=== PATIENT | female | born 1965 | race Caucasian/White ===

== ENCOUNTER → 2016-11-23 | Outpatient (CLI) | payer OTHER ==
--- NOTE | 2016-11-23 12:25 | MR ---
EXAMINATION TYPE: MR cervical spine wo con DATE OF EXAM: 11/23/2016 12:05 PM COMPARISON: NONE HISTORY: Cervicalgia, Lenard arm pain and weakness, Headaches TECHNIQUE: Multiplanar, multisequence images of the cervical spine were acquired. C2-C3: No evidence for degenerative disc disease. No disc bulge/herniation or protrusion. No Canal stenosis. Foramina are patent bilaterally. C3-C4: Mild disc desiccation noted. Small right paracentral disc protrusion with mild effacement of t he ventral thecal sac. Mild right foraminal encroachment identified. Left neural foramen is patent. C4-C5: No evidence for degenerative disc disease. No disc bulge/herniation or protrusion. No Canal stenosis. Foramina are patent bilaterally. C5-C6: No evidence for degenerative disc disease. No disc bulge/herniation or protrusion. No Canal stenosis. Foramina are patent bilaterally. C6-C7: No evidence for degenerative disc disease. No disc bulge/herniation or protrusion. No Canal stenosis. Foramina are patent bilaterally. C7-T1: No evidence for degenerative disc disease. No disc bulge/herniation or protrusion. No Canal stenosis. Foramina are patent bilaterally. Cervical segments are intact. There is normal alignment. Cervical spinal cord is of normal signal. Craniovertebral junction relationships are within normal limits. IMPRESSION: 1. At C3-4 there is Mild disc desiccation noted. Small right paracentral disc protrusion with mild ef facement of the ventral thecal sac. Mild right foraminal encroachment identified.
--- NOTE | 2016-11-24 10:37 | MR ---
EXAMINATION TYPE: MR lumbar spine wo/w con DATE OF EXAM: 11/23/2016 12:06 PM COMPARISON: NONE HISTORY: lumbago, vinnie leg numbness/pain, sciatica TECHNIQUE: T1 and T2 axial and sagittal images of the lumbar spine are submitted. FINDINGS: There is no abnormal signal seen within the visualized spinal cord or paraspinal soft tissu es. Vertebral body hemangioma T12 and L3. At L1-2 there is no disc herniation or canal stenosis. No foraminal encroachment. At L2-3 there is no disc herniation or canal stenosis. No foraminal encroachment. Mild facet arthropa thy. At L3-4 there is mild facet arthropathy. No disc herniation or canal stenosis. No foraminal encroachm ent. At L4-5 there is postsurgical changes with productive facet arthropathy. There is no Canal stenosis. Hypertrophic changes are seen posteriorly. Circumferential disc bulging seen with no canal stenosis. Mild bilateral foraminal encroachment. At L5-S1 there is central disc bulging slightly greater paracentrally the right. There is mild mass e ffect upon the thecal sac. Moderate degenerative disc disease. Mild facet arthropathy. Neural foramin a are patent. IMPRESSION: 1. Postsurgical changes L4-L5 with no evidence of canal stenosis. Mild bilateral foraminal encroachme nt due to hypertrophic changes. 2. There is a central disc bulge or small protrusion L5-S1 mildly indenting the thecal sac. No forami nal encroachment.
== END ==
LOC: RADMRIMAIN 10:13
PROVIDERS: ATTEND Nurse Practitioner Acute Care
DX: M50.21 Other cervical disc displacement, high cervical region (principal); M48.06 Spinal stenosis, lumbar region; Z91.041 Radiographic dye allergy status; Z88.0 Allergy status to penicillin; Z88.2 Allergy status to sulfonamides; Z88.8 Allergy status to other drugs, medicaments and biological substances; Z91.09 Other allergy status, other than to drugs and biological substances
CPT/HCPCS: 72141; 72158; A9577

== ENCOUNTER → 2019-06-06 | Outpatient (CLI) | payer OTHER ==
--- NOTE | 2019-06-07 12:11 | MM ---
Reason for exam: screening (asymptomatic). Last mammogram was performed 2 years and 5 months ago. History: Patient is postmenopausal. Family history of breast cancer in maternal cousin. Physical Findings: A clinical breast exam by your physician is recommended on an annual basis and results should be correlated with mammographic findings. MG Screening Mammo w CAD Bilateral CC and MLO view(s) were taken. Prior study comparison: January 05, 2017, mammogram. The breast tissue is heterogeneously dense. This may lower the sensitivity of mammography. No significant changes when compared with prior studies. ASSESSMENT: Benign, BI-RAD 2 RECOMMENDATION: Routine screening mammogram of both breasts in 1 year.
--- NOTE | 2019-06-07 16:17 | BD ---
EXAMINATION TYPE: Axial Bone Density DATE OF EXAM: 06/06/2019 COMPARISON: NONE CLINICAL HISTORY: 53 YR OLD FEMALE....ICD-10 CODE: N95.1 POST MENOPAUSAL SYMPTOMS Height: 63.5 Weight: 151 FRAX RISK QUESTIONS: Family History (Parent hip fracture): YES Current Tobacco Use: YES RISK FACTORS HISTORY OF: HX OF C3, C4 FRACTURE, COLLAR BONE AND NOSE, <50 YRS OLD Surgery to Spine LOWER SPINE, FUSION, WITH SCREWS LUMBAR SPINE< 50 YRS OLD Family History of Osteoporosis: YES, HER MOTHER WITH HIP REPAIRS Diet low in dairy products/other sources of calcium: YES, CANNOT TOLERATE Postmenopausal woman: YES, AT AGE 47 YRS OLD Lost more than 2 inches in height since high school: YES MEDICATIONS: Additional Medications: ANTI SEZIURE MEDS, EXCEDRIN, XANAX Additional History: BACK PAIN, EXAM MEASUREMENTS: Bone mineral densitometry was performed using the [employer] System. FUSION OF LUMBAR, SPINE NOT SCANNED Bone mineral density about the R hip (g/cm2): 0.776 Bone mineral density about the L hip (g/cm2): 0.827 T Score values are as follows: -----R Neck: -2.1 -----L Neck: -1.8 -----R Total: -1.8 -----L Total: -1.4 Bone mineral density FIRST DEXA, BASELINE STUDY FRAX%s: THERE IS A 14.6% CHANCE FOR A MAJOR OSTEOPOROTIC FX AND A 3.7% FOR HIP....PROBABILITY FOR F X IN 10 YRS TIME Bone mineral density about the L Wrist (g/cm2): 0.516 T Score values are as follows: -----Dist. R+U: -3.1 -----Prox. R+U: -1.5 -----Radius total: -2.2 Bone mineral density BASELINE STUDY IMPRESSION: Osteoporosis (T Score less than -2.5). There is increased fracture risk and therapy is usually indicated based on age. Re-Screen 1-2 years. NOTE: T-SCORE=SD OF THE YOUNG ADULT MEAN.
== END | disposition home or self-care (01) ==
LOC: RADMAMWWP 14:49
PROVIDERS: ATTEND Obstetrics & Gynecology
DX: Z12.31 Encounter for screening mammogram for malignant neoplasm of breast (principal); M81.0 Age-related osteoporosis without current pathological fracture; N95.1 Menopausal and female climacteric states
CPT/HCPCS: 77067; 77080

== ENCOUNTER → 2020-11-29 | Outpatient (CLI) | payer OTHER ==
[2020-11-29 19:27] LABS: HCT 45.8 % (37.2-46.3); HGB 15.3 g/dL (12.0-15.0); MCHC 33.4 g/dL (32.0-37.0); MCV 92.7 fL (80.0-97.0); Mean Platelet Volume 12.1 fL (9.5-12.2); Platelet Count 208 X 10*3/uL (140-440); RBC 4.94 X 10*6/uL (4.10-5.20); RDW 12.5 % (11.5-14.5); WBC 7.46 X 10*3/uL (4.50-10.00)
[2020-11-30 01:41] LABS: African American GFR (CKD) 83.4 (60.0-200.0); Anion Gap 10.4 mmol/L (4.00-12.00); Carbon Dioxide 25.6 mmol/L (21.6-31.8)
== END ==
LOC: LABWHC1 12:00
PROVIDERS: ATTEND Internal Medicine Interventional Cardiology
DX: Z01.812 Encounter for preprocedural laboratory examination (principal)
CPT/HCPCS: 36415; 80051; 82565; 84520; 85027

== ENCOUNTER 2020-12-10 10:23 | Day surgery (SDC) | payer OTHER ==
[~2020-12-10 10:23] MED LIST: ALPRAZolam 0.25 MG TAB PO PRN; ASPIRIN 325 MG TAB PO STA; HEPARIN SODIUM,PORCINE 10,000 UNIT in SODIUM CHLORIDE 0.9% 1,000 ML IRRIGATION PRN; HEPARIN SODIUM,PORCINE 2,500 UNIT in SODIUM CHLORIDE 0.9% 250 ML IRRIGATION PRN; NITROGLYCERIN SL TABS 0.4 MG TAB SUBLINGUAL PRN; SODIUM CHLORIDE 0.9% 1,000 ML in EMPTY BAG 1 BAG IV ONE
[2020-12-10] MEDS ORDERED: ALPRAZolam 0.5 MG TAB ONE (10:36)
[2020-12-10] MEDS ORDERED: ASPIRIN 81 MG ONE (10:36)
[2020-12-10] MEDS ORDERED: MIDAZOLAM 2 MG/2 ML VIAL IV ONE (12:10)
[2020-12-10] MEDS ORDERED: LIDOCAINE 1% INJ 10MG/ML (20 ML MDV) SQ ONE (12:12)
[2020-12-10] MEDS ORDERED: VERAPAMIL SYRINGE (5 MG/10 ML) INTRAARTER ONE (12:14)
[2020-12-10] MEDS ORDERED: HEPARIN SODIUM 1,000 UN/ML (10ML VL) IV ONE (12:18)
[2020-12-10] MEDS ORDERED: HYDROmorphone 0.5 MG/0.5 ML SYRINGE IVP ONE (12:19)
[2020-12-10] MEDS: NITROGLYCERIN 1000MCG/10ML SYRINGE INTRACORON ONE ×2 (12:28→12:34)
[2020-12-10] MEDS ORDERED: IOPAMIDOL-370 125ML BTL INJ ONE (12:37)
[2020-12-10] MEDS ORDERED: PRASUGREL 10 MG TAB ONE (12:37)
[2020-12-10] MEDS ORDERED: PRASUGREL 10 MG TAB PO ONE (12:37)
[2020-12-10] MEDS ORDERED: ATROPINE SULFATE 0.1 MG/ML 10ML SYRINGE IV PRN (12:47)
[2020-12-10] MEDS ORDERED: RX INFO: IV CONTRAST WAS GIVEN 1 EACH MISC MISCELLANE PRN (12:47)
[2020-12-10] MEDS ORDERED: NITROGLYCERIN SL TABS 0.4 MG TAB SUBLINGUAL PRN (12:47)
[2020-12-10] MEDS ORDERED: ZOLPIDEM 5 MG TAB PO PRN (12:47)
[2020-12-10] MEDS ORDERED: MAG HYDROX/AL HYDROX/SIMETH 30 ML CUP PO PRN (12:47)
[2020-12-10] MEDS ORDERED: ASPIRIN-ACET-CAFF 250-250-65MG 1 EACH TAB PO PRN (12:48)
[2020-12-10] MEDS ORDERED: SODIUM CHLORIDE 0.9% 1,000 ML IV SCH (13:00)
--- NOTE | 2020-12-10 13:44 | PTCA ---
PERCUTANEOUSTRANS CORORONARY ANGIOGRAPHY DATE OF SERVICE: December 10, 2020 PERFORMING PHYSICIAN: Cristopher Feng MD. PROCEDURE PERFORMED: 1. Successful stenting of the proximal left anterior descending artery using 3.0 x 15 mm Xience drug-eluting stent with an excellent angiographic results and reduction of stenosis from 70% to 0%. 2. Fractional flow reserve, FFR, of the left anterior descending artery. INDICATION: This is a 55-year-old female patient with hypertension and dyslipidemia and smoking who presented recently to [facility] with chest discomfort. She underwent a heart catheterization at that point and she was found to have intermediate to severe disease involving the LAD. Medical treatment was advised, but because the patient continues to have chest discomfort concerning for angina, a heart catheterization with FFR of the LAD was advised. APPROACH: Right radial artery. COMPLICATION: None. LEVEL OF SEDATION: Moderate with sedation length of 28 minutes. PROCEDURE DESCRIPTION: After obtaining an informed consent, the patient was brought to the cardiac freezer laboratory technician. The right radial artery was cannulated using micropuncture technique, the micropuncture wire passed easily then I placed a 6-Nepali sheath in the right radial artery. At that point, the patient was given 2 mg of verapamil IA and 6000 units of heparin IV. After that I did an FFR of the left anterior descending artery and subsequently stenting of the LAD. FFR AND STENTING OF THE LAD: After zeroing the Doppler wire and equalizing between the Doppler wire and the guiding catheter, we did an iFR of the LAD and that came in to be at 0.88. We did not pursue adenosine infusion because iFR was abnormal to start with. At that point, I did direct stenting of the lesion using 3.0 x 15 mm Xience drug- eluting stent where the stent was positioned under fluoroscopy guidance and deployed under its nominal pressure. The following angiogram showed excellent angiographic results and the procedure was completed without any complication. Please note that ACT monitoring was performed throughout the procedure. POSTPROCEDURE MANAGEMENT: Medical treatment and follow up with the patient. MMODL / IJN: [id number] /
[2020-12-10 14:08] VITALS: BMI 24.8
[2020-12-10] MEDS: ACETAMINOPHEN TAB 500 MG TAB PO PRN ×2 (14:38→20:31)
[2020-12-10] MEDS ORDERED: ATORVASTATIN 80 MG TAB PO SCH (21:00)
[2020-12-11 05:51] LABS: Basophils # (A) 0.1 k/uL (0-0.2); Basophils % (A) 1 %; Eosinophils # (A) 0.1 k/uL (0-0.7); Eosinophils % (A) 1 %; HCT 42.4 % (34.0-46.0); Lymphocytes # (A) 4.2 k/uL (1.0-4.8); Lymphocytes % (A) 33 %; MCH 30.3 pg (25.0-35.0); MCV 91.8 fL (80.0-100.0); Monocytes # (A) 0.6 k/uL (0-1.0); Monocytes % (A) 5 %; Neutrophils # (A) 7.7 k/uL (1.3-7.7); Neutrophils % (A) 60 %; Platelet Count 210 k/uL (150-450); RBC 4.62 m/uL (3.80-5.40); RDW 12.8 % (11.5-15.5); WBC 12.7 k/uL (3.8-10.6)
[2020-12-11 06:02] LABS: African American GFR (CKD) >90 (>60 ml/min/1.73 sqM); Anion Gap 5 mmol/L; Blood Urea Nitrogen 15 mg/dL (7-17); Calcium 8.7 mg/dL (8.4-10.2); Carbon Dioxide 28 mmol/L (22-30); Chloride 105 mmol/L (98-107); Glucose 93 mg/dL (74-99); Non-African American GFR(CKD) 89 (>60 ml/min/1.73 sqM); Sodium 138 mmol/L (137-145)
[2020-12-11 07:48] VITALS: BP 107/71; PULSE 64; RESP 16; TEMP 97.8
[2020-12-11] MEDS ORDERED: METOPROLOL SUCCINATE (ER) 25 MG TAB.ER.24H PO SCH (09:00)
[2020-12-11] MEDS ORDERED: ASPIRIN 81 MG PO SCH (09:00)
[2020-12-11] MEDS ORDERED: PRASUGREL 10 MG TAB PO SCH (12:00)
--- NOTE | 2020-12-11 12:58 | DS ---
DISCHARGE SUMMARY ADMISSION DATE: December 10, 2020 DISCHARGE DATE: December 11, 2020 BRIEF HISTORY: This is a pleasant 55-year-old female patient who underwent yesterday fractional flow reserve of the left anterior descending artery which came into be ischemic and subsequently she underwent successful stenting of the LAD with good angiographic results and without any complication. The patient was seen this morning. The right radial site is soft and nontender. She is going to be discharged on dual anti-platelet therapy and I will follow up with the patient next week in the office. MMODL / IJN: [id number] /
--- NOTE | 2020-12-12 22:06 | PN ---
PROGRESS NOTE DATE OF SERVICE: 12/11/2020 CHIEF COMPLAINT: Coronary artery disease. HISTORY OF PRESENT ILLNESS: This lady has undergone her procedure and is expected to be discharged today. She has had no problems. PHYSICAL EXAMINATION: Her chest is clear. Cardiac exam is normal. Abdomen is soft, nontender. IMPRESSION: 1. Coronary artery disease. 2. Tobacco abuse. PLAN: Probably home today. MMODL / IJN: [id number] /
--- NOTE | 2020-12-12 22:27 | CONS ---
CONSULTATION DATE OF SERVICE: 12/10/2020 CHIEF COMPLAINT: Coronary artery disease and persistent chest pain. HISTORY OF PRESENT ILLNESS: This is another admission for this 55-year-old female who had a myocardial infarction and underwent stenting several months ago. She has had persistent pain and she was brought back in for further evaluation of her coronary artery anatomy with the potential of further vascular intervention. REVIEW OF SYSTEMS: She has had no syncope, neurologic problems, difficulty with vision or the hearing, chest pain, cough, hemoptysis, palpitations, orthopnea, PND, etc. She has had some considerable exertional dyspneas since her ME. She has had no abdominal pain, nausea, vomiting, diarrhea, melena, hematochezia, jaundice, hepatitis, renal failure, frequency, urgency, hematuria, etc. Past medical history, family history, and personal and social histories are all to be found in her admitting summary and otherwise not changed. She is NOT ALLERGIC TO ANY MEDICATION. She has continued to smoke, however. PHYSICAL EXAMINATION: Blood pressure 120/90 with a pulse of 76, respirations 16 and temperature 97.5. In general she appeared to be well developed, well nourished, in no acute distress. Skin color was normal. Skin was warm and dry. Lymph nodes were not enlarged. Head, ears, eyes, nose, mouth and throat were normal the chest was clear. Cardiac exam was normal and there were no murmurs or extra sounds. The abdomen was soft and nontender with no visceromegaly or masses. Bowel sounds were present and extremities were normal. Neurologically she was intact. She is admitted to the hospital with diagnoses: 1. Unstable angina pectoris. 2. Coronary artery disease. 3. Recent myocardial infarction. 4. Nicotine use. RECOMMENDATIONS: None except to proceed with planned procedure. Thank you. Respectfully, MD BETZY Murray II / JESSENIA: [id number] /
== END 2020-12-11 09:10 | disposition home or self-care (01) ==
LOC: CATHCVL 10:23 → 6NMEDSUR 13:32 → CATHCVL 12-11 09:10
PROVIDERS: ATTEND Internal Medicine Interventional Cardiology
DX: I25.10 Atherosclerotic heart disease of native coronary artery without angina pectoris (principal); E78.5 Hyperlipidemia, unspecified; I10 Essential (primary) hypertension; F17.210 Nicotine dependence, cigarettes, uncomplicated; Z79.899 Other long term (current) drug therapy; Z79.82 Long term (current) use of aspirin; Z88.0 Allergy status to penicillin; Z88.1 Allergy status to other antibiotic agents; Z91.048 Other nonmedicinal substance allergy status; Z88.2 Allergy status to sulfonamides; Z82.49 Family history of ischemic heart disease and other diseases of the circulatory system
CPT/HCPCS: 93571; 85347; 80048; 85025; C9600; C1887; C1874; C1769; C1894; J2250; J2001; J1644; J1170; Q9967

== ENCOUNTER → 2021-11-12 | Outpatient (CLI) | payer OTHER ==
[2021-11-12 19:01] LABS: Basophils # (A) 0.08 X 10*3/uL (0.00-0.10); Basophils % (A) 1.6 %; Eosinophils # (A) 0.23 X 10*3/uL (0.04-0.35); Eosinophils % (A) 4.7 %; HCT 45.1 % (37.2-46.3); Immature Grans, Automated 0.4 %; Lymphocytes # (A) 2.17 X 10*3/uL (0.90-5.00); MCH 30.3 pg (27.0-32.0); MCHC 33.3 g/dL (32.0-37.0); MCV 91.1 fL (80.0-97.0); Mean Platelet Volume 11.5 fL (9.5-12.2); Monocytes # (A) 0.37 X 10*3/uL (0.20-1.00); Monocytes % (A) 7.5 %; NRBC Per 100 WBC 0 /100 WBCS (0.0-0.0); Neutrophils # (A) 2.06 X 10*3/uL (1.80-7.70); Neutrophils % (A) 41.8 %; Platelet Count 156 X 10*3/uL (140-440); RBC 4.95 X 10*6/uL (4.10-5.20); RDW 12.3 % (11.5-14.5); WBC 4.93 X 10*3/uL (4.50-10.00)
[2021-11-12 19:28] LABS: ALT 13 U/L (8-44); AST 18 U/L (13-35); African American GFR (CKD) 85.5 (60.0-200.0); Albumin 4.2 g/dL (3.8-4.9); Albumin/Globulin Ratio 1.63 (1.60-3.17); Alkaline Phosphatase 51 U/L (41-126); BUN/Creat Ratio 9.27 Ratio (12.00-20.00); Blood Urea Nitrogen 8.1 mg/dL (9.0-27.0); Calcium 9.2 mg/dL (8.7-10.3); Carbon Dioxide 25.3 mmol/L (20.0-27.5); Chloride 106 mmol/L (96-109); Chol/HDL Ratio 2.06 Ratio; Globulin 2.6 g/dL (1.6-3.3); Glucose 97 mg/dL (70-110); LDL Cholesterol,Calculated 45.3 mg/dL (0.0-131.0); Magnesium 2.1 mg/dL (1.5-2.4); Non-African American GFR(CKD) 73.8 (60.0-200.0); Potassium 4.5 mmol/L (3.5-5.5); Sodium 143 mmol/L (135-145); Total Protein 6.7 g/dL (6.2-8.2)
== END | disposition home or self-care (01) ==
LOC: LABWHC1 13:07
PROVIDERS: ATTEND Nurse Practitioner Adult Health
DX: I25.10 Atherosclerotic heart disease of native coronary artery without angina pectoris (principal); I10 Essential (primary) hypertension; E78.5 Hyperlipidemia, unspecified; E55.9 Vitamin D deficiency, unspecified
CPT/HCPCS: 36415; 80053; 80061; 82306; 83735; 84443; 85025

== ENCOUNTER 2022-03-06 18:09 | Emergency (ER) | payer OTHER ==
[2022-03-06] MEDS ORDERED: MORPHINE SULFATE 4 MG/ML SYRINGE IVP STA (19:19)
--- NOTE | 2022-03-06 19:25 | ED ---
General Adult HPI - General Chief complaint: Extremity Injury, Upper Stated complaint: Fall/broken wrist Time Seen by Provider: 03/06/22 19:11 Source: patient Mode of arrival: ambulatory Limitations: no limitations - History of Present Illness Initial comments: Patient is a 56-year-old female presenting with chief complaint of left wrist pain. Patient states that several days ago she was at [facility], during the time she was treated for Cellulitis and had a heart catheterization. During her stay she broke her wrist, at that time she required draining of blood from the affected area due to increased pain and pressure. She was placed in a sugar tong splint, discharged, and instructed to follow-up with orthopedics outpatient. Patient came home from the hospital today and since getting home the pain has increased. Patient took a [place] 7.5 mg she was prescribed, however it was not effective. She denies any numbness or tingling, she is still able to move her fingers. Denies fever, chills, nausea, vomiting, chest pain, shortness of breath, abdominal pain, headache, vision or hearing changes, weakness. - Related Data Home Medications Medication Instructions Recorded Confirmed Aspirin EC [Ecotrin Low Dose] 81 mg PO QAM 12/06/20 12/10/20 [id number] 2 each PO TID PRN 12/06/20 12/06/20 [Excedrin] Atorvastatin [Lipitor] 80 mg PO HS 12/06/20 12/10/20 Metoprolol Succinate (ER) [Toprol 25 mg PO QAM 12/06/20 12/10/20 XL] Previous Rx's Medication Instructions Recorded Prasugrel [Effient] 10 mg PO DAILY 90 Days #90 tab 12/11/20 HYDROcodone/APAP 10-325MG [[place] 1 tab PO Q6HR PRN 3 Days #12 tab 03/06/22 10-325] Allergies Allergy/AdvReac Type Severity Reaction Status Date / Time erythromycin base Allergy Rash/Hives Verified 03/06/22 19:32 Iodinated Contrast Media Allergy Anaphylaxis Verified 03/06/22 18:15 nitrofurantoin Allergy Rash/Hives Verified 03/06/22 19:32 [From Macrodantin] Penicillins Allergy Unknown Verified 03/06/22 18:15 Childhood Sulfa (Sulfonamide Allergy Anaphylaxis Verified 03/06/22 19:32 Antibiotics) Review of Systems ROS Statement: Those systems with pertinent positive or pertinent negative responses have been documented in the HPI. ROS Other: All systems not noted in ROS Statement are negative. Past Medical History Past Medical History: Seizure Disorder Additional Past Medical History / Comment(s): Recent episodes of "hot flashes, skin turns white, nausea, pressure in chest". "Have blockage in maker valve." "Single Sensory Seizures, does not lose full consciousness, loses vision, gets vertigo and nausea." "No meds for seizures currently, last seizure 1 month ago". Hx brain trauma X3. Frequent headaches. History of Any Multi-Drug Resistant Organisms: None Reported Past Surgical History: Back Surgery, Heart Catheterization, Heart Catheterization With Stent Additional Past Surgical History / Comment(s): Spine surgery X2, nose surgery X2, right leg reconstruction, colonoscopy, D&C X2. Past Anesthesia/Blood Transfusion Reactions: No Reported Reaction Date of Last Stent Placement:: 12/10/2020 Past Psychological History: No Psychological Hx Reported Smoking Status: Current every day smoker Past Alcohol Use History: Rare Past Drug Use History: None Reported - Past Family History Father Family Medical History: Cancer Additional Family Medical History / Comment(s): Prostate cancer. General Exam Limitations: no limitations General appearance: alert, in no apparent distress Head exam: Present: atraumatic, normocephalic, normal inspection Eye exam: Present: normal appearance, EOMI. Absent: scleral icterus Neck exam: Present: normal inspection Extremities exam: Present: normal capillary refill Left Forearm Wrist exam: Present: tenderness, swelling, ecchymosis, deformity. Absent: full ROM Neurosensory exam: Present: other (Neurovascularly intact) Vascular: Present: radial pulse (2+). Absent: vascular compromise Neurological exam: Present: alert, oriented X3, CN II-XII intact Psychiatric exam: Present: normal affect, normal mood Skin exam: Present: warm, dry, intact, normal color. Absent: rash Course Vital Signs 03/06/22 03/06/22 18:11 21:04 Temperature 98.3 F 98.1 F Pulse Rate 74 65 Respiratory 16 18 Rate Blood Pressure 177/103 140/89 O2 Sat by Pulse 96 90 L Oximetry Medical Decision Making - Medical Decision Making Patient is a 56-year-old female presenting with chief complaint of left first pain. Patient broke her wrist during a recent hospitalization at [facility], she was instructed to follow up with orthopedics outpatient was placed in a sugar tong splint. She was discharged today, however when she got home the pain grew more severe. She took her [place] 7.5 mg which did not alleviate the pain. On examination here there is immediate relief when I removed the splint. Patient has 2+ radial pulse, is able to move the fingers, sensation of the extremity. There is a clear deformity and bruising secondary to the fracture. X-ray confirms an acute intra-articular fracture of the distal left radius with extension into the wrist and distal radial ulnar joints. There is also a suspected acute fracture of the left ulnar styloid process. Patient was given pain medication and sugar tong splint was reapplied. Patient was instructed to follow-up with orthopedics. I provided her with an additional orthopedic contact instructed her to call the orthopedic office on Wednesday. Take medication as prescribed. Report back to ER if any new or worsening symptoms. I discussed return parameters alarm symptoms. Answered all questions. Patient conveyed verbal understanding and agreed to the plan. I discussed this case with my attending Dr. Lloyd. Disposition Clinical Impression: Wrist fracture, left Disposition: HOME SELF-CARE Condition: Good Instructions (If sedation given, give patient instructions): Wrist Fracture in Adults (ED) Additional Instructions: Follow-up with PCP and orthopedics on Wednesday. Report back to ER with any new or worsening symptoms. Take medication as prescribed. Prescriptions: HYDROcodone/APAP 10-325MG [[place] 10-325] 1 tab PO Q6HR PRN 3 Days #12 tab PRN Reason: Pain Is patient prescribed a controlled substance at d/c from ED?: No Referrals: Lawrence Rene MD [Primary Care Provider] - 1-2 days Alec Almanzar PAC [PHYSICIAN SCIENCE SPECIALIST] - 1-2 days Time of Disposition: 20:36
--- NOTE | 2022-03-06 19:42 | XR ---
EXAMINATION TYPE: XR wrist complete LT DATE OF EXAM: 03/06/2022 6:43 PM INDICATION: Patient age:Female; 56 years old; Reason for study: Left wrist pain. COMPARISON: None TECHNIQUE: 3 views of the left wrist. FINDINGS: Cast material limits evaluation of bony detail. There is a comminuted fractures of the distal left radius with intra-articular extension into the wri st. Fracture lines also extend to the distal radioulnar joint. There is a fracture through the left u lnar styloid process as well. There is shortening of the radius. No radiopaque foreign bodies. IMPRESSION: 1. Acute intra-articular fracture of the distal left radius with extension into the wrist and distal radioulnar joints. There is shortening of the uterus. 2. Suspected acute fracture of the left ulnar styloid process. Splint material slightly limits evalu ation of fine bony detail.
[2022-03-06] MEDS ORDERED: HYDROmorphone 0.5 MG/0.5 ML SYRINGE IM STA (20:30)
[2022-03-06] MEDS ORDERED: FAMOTIDINE 20 MG/2 ML VIAL IV STA (20:35)
[2022-03-06 21:05] VITALS: BP 140/89; PULSE 65; RESP 18; TEMP 98.1
== END 2022-03-06 21:05 | disposition home or self-care (01) ==
LOC: EC 18:09
DX: S62.102A Fracture of unspecified carpal bone, left wrist, initial encounter for closed fracture (principal); F17.200 Nicotine dependence, unspecified, uncomplicated; Z88.0 Allergy status to penicillin; Z88.2 Allergy status to sulfonamides; Z88.6 Allergy status to analgesic agent; Z88.5 Allergy status to narcotic agent; W19.XXXA Unspecified fall, initial encounter
CPT/HCPCS: 73110; 99283; 96374; 96375; 96372; J2270; J1170

== ENCOUNTER 2022-03-09 11:23 | Emergency (ER) | payer OTHER ==
[2022-03-09 11:45] VITALS: BP 117/74; PULSE 66; RESP 18; TEMP 98.3
--- NOTE | 2022-03-09 15:00 | ED ---
Upper Extremity HPI - General Chief Complaint: Extremity Injury, Upper Stated Complaint: Revisit/broken arm/pain/fingers numbness Time Seen by Provider: 03/09/22 13:35 Source: patient Mode of arrival: ambulatory Limitations: no limitations - History of Present Illness Initial Comments: Patient is a 56-year-old female presenting with chief complaint of wrist pain. Patient broke the left wrist while admitted at [facility], she was instructed to follow-up with orthopedics outpatient was placed in a sugar tong splint. She was seen here on Wednesday citing that she had increased pain and swelling in her pain medication was not sufficient. Patient had instant relief with removal of the splint, a looser sugar tong splint was applied and she was given pain medication. Patient is returning today because she is having difficulty getting into orthopedic office and her pain is increased yet again. Patient is taking [place] 10's without relief. She states that there is increased pressure, however her fingers are still warm, she is still able to move them. Denies numbness, tingling, discoloration of the extremity. - Related Data Home Medications Medication Instructions Recorded Confirmed Aspirin EC [Ecotrin Low Dose] 81 mg PO QAM 12/06/20 12/10/20 Grlsfak-Iiwp-Clew [id number] 2 each PO TID PRN 12/06/20 12/06/20 [Excedrin] Atorvastatin [Lipitor] 80 mg PO HS 12/06/20 12/10/20 Metoprolol Succinate (ER) [Toprol 25 mg PO QAM 12/06/20 12/10/20 XL] Previous Rx's Medication Instructions Recorded Prasugrel [Effient] 10 mg PO DAILY 90 Days #90 tab 12/11/20 HYDROcodone/APAP 10-325MG [[place] 1 tab PO Q6HR PRN 3 Days #12 tab 03/06/22 10-325] Allergies Allergy/AdvReac Type Severity Reaction Status Date / Time erythromycin base Allergy Rash/Hives Verified 03/09/22 11:45 Iodinated Contrast Media Allergy Anaphylaxis Verified 03/09/22 11:45 nitrofurantoin Allergy Rash/Hives Verified 03/09/22 11:45 [From Macrodantin] Penicillins Allergy Unknown Verified 03/09/22 11:45 Childhood Sulfa (Sulfonamide Allergy Anaphylaxis Verified 03/09/22 11:45 Antibiotics) Review of Systems ROS Statement: Those systems with pertinent positive or pertinent negative responses have been documented in the HPI. ROS Other: All systems not noted in ROS Statement are negative. Past Medical History Past Medical History: Seizure Disorder Additional Past Medical History / Comment(s): Recent episodes of "hot flashes, skin turns white, nausea, pressure in chest". "Have blockage in maker valve." "Single Sensory Seizures, does not lose full consciousness, loses vision, gets vertigo and nausea." "No meds for seizures currently, last seizure 1 month ago". Hx brain trauma X3. Frequent headaches. History of Any Multi-Drug Resistant Organisms: None Reported Past Surgical History: Back Surgery, Heart Catheterization, Heart Catheterization With Stent Additional Past Surgical History / Comment(s): Spine surgery X2, nose surgery X2, right leg reconstruction, colonoscopy, D&C X2. Past Anesthesia/Blood Transfusion Reactions: No Reported Reaction Date of Last Stent Placement:: 12/10/2020 Past Psychological History: No Psychological Hx Reported Smoking Status: Current every day smoker Past Alcohol Use History: Rare Past Drug Use History: None Reported - Past Family History Father Family Medical History: Cancer Additional Family Medical History / Comment(s): Prostate cancer. General Exam Limitations: no limitations General appearance: alert, in no apparent distress Head exam: Present: atraumatic, normocephalic, normal inspection Eye exam: Present: normal appearance, EOMI. Absent: scleral icterus Neck exam: Present: normal inspection Left Forearm Wrist exam: Present: tenderness, swelling, deformity, other (Range of motion of the fingers is intact). Absent: full ROM Neuro motor exam: Present: fingers 2-5 abduction intact. Absent: wrist extension intact Vascular: Present: radial pulse (2+). Absent: vascular compromise Neurological exam: Present: alert, oriented X3, CN II-XII intact Psychiatric exam: Present: normal affect, normal mood Skin exam: Present: warm, dry, intact, normal color. Absent: rash Course Vital Signs 03/09/22 11:39 Temperature 98.3 F Pulse Rate 66 Respiratory 18 Rate Blood Pressure 117/74 O2 Sat by Pulse 96 Oximetry Medical Decision Making - Medical Decision Making Patient is a 56-year-old female presenting with chief complaint of left wrist pain. Patient has a known fracture and is instructed to follow-up with orthopedics, however she states she is having difficulty getting an appointment is in severe pain. Upon removal of the splint she has relief. Compartments are soft, full sensation is intact, 2+ radial pulse, no discoloration. Patient is provided with another referral for Dr. Hale. A loose bulky sugar tong splint is applied and she is provided with a arm sling. Follow-up with PCP and orthopedics. Discussed return parameters answered all questions. Report back to ER if any worsening symptoms. Patient conveyed verbal understanding and agreed to the plan. I discussed this case with my attending Dr. Bishop Disposition Clinical Impression: Wrist fracture Disposition: HOME SELF-CARE Condition: Good Instructions (If sedation given, give patient instructions): Wrist Fracture in Adults (ED) Additional Instructions: Follow-up with PCP and orthopedics. Report back to ER with any new or worsening symptoms. Take pain medication as prescribed. Keep arm elevated above the level of the heart frequently to reduce pain and swelling. Utilize ice as needed. Is patient prescribed a controlled substance at d/c from ED?: No Referrals: Lawrence eRne MD [Primary Care Provider] - 1-2 days Jalen Hale MD [Medical Doctor] - 1-2 days Arun Reis DO [Doctor of Osteopathic Medicine] - 1-2 days Time of Disposition: 15:02
[2022-03-09] MEDS ORDERED: HYDROmorphone 1 MG/ML 1 ML SYRINGE IM STA (15:01)
[2022-03-09] MEDS ORDERED: ONDANSETRON ODT 4 MG TAB PO STA (15:01)
== END 2022-03-09 15:34 | disposition home or self-care (01) ==
LOC: EC 11:23
DX: S62.102A Fracture of unspecified carpal bone, left wrist, initial encounter for closed fracture (principal); F17.200 Nicotine dependence, unspecified, uncomplicated; Z88.3 Allergy status to other anti-infective agents; Z88.0 Allergy status to penicillin; Z88.2 Allergy status to sulfonamides; Z88.1 Allergy status to other antibiotic agents; Z88.8 Allergy status to other drugs, medicaments and biological substances; X58.XXXA Exposure to other specified factors, initial encounter
CPT/HCPCS: 99283; 96372; J1170

== ENCOUNTER → 2022-03-31 | Outpatient (CLI) | payer OTHER ==
--- NOTE | 2022-03-31 11:48 | XR ---
EXAMINATION TYPE: XR cervical spine comp DATE OF EXAM: 03/31/2022 11:18 AM INDICATION: Patient age:Female; 56 years old; Reason for study: M54.2, M54.5; COMPARISON: None TECHNIQUE: The cervical spine was imaged in 4 projections. Frontal, lateral, odontoid and bilateral o blique. FINDINGS: The osseous structures show normal alignment without evidence of an acute fracture. There are osteoph ytes noted throughout the cervical spine on the anterior and lateral aspects of the vertebral bodies. The intervertebral disk spaces are preserved. Pedicles are intact. Soft tissues are within normal limits. The odontoid appears intact. Uncovertebral facet joint arthropathy result in mild right C3-C4 neural foraminal stenosis. IMPRESSION: 1. No fracture or dislocation. 2. Mild degenerative disc disease changes of the cervical spine with mild right C3-C4 neural foramina l stenosis..
--- NOTE | 2022-03-31 11:49 | XR ---
EXAMINATION TYPE: XR lumbosacral spine min 4V DATE OF EXAM: 03/31/2022 11:18 AM INDICATION: Patient age:Female; 56 years old; Reason for study: M54.2, M54.5; COMPARISON: Radiograph 01/02/2011 TECHNIQUE: Frontal, lateral , bilateral oblique and coned in L5-S1 lateral views of the spine. FINDINGS: Similar postsurgical changes with hardware in place. Hardware appears intact. There is mild atherosclerosis of the arterial vasculature. No evidence of any acute osseous pathology. No evidence of loss of vertebral body height is seen. Th ere is straightening of the alignment of the lumbar vertebral bodies. IMPRESSION: Postsurgical changes with stable alignment. Hardware is intact.
== END | disposition home or self-care (01) ==
LOC: RADXRMAIN 10:36
PROVIDERS: ATTEND Family Medicine
DX: M50.321 Other cervical disc degeneration at C4-C5 level (principal); M99.71 Connective tissue and disc stenosis of intervertebral foramina of cervical region
CPT/HCPCS: 72050; 72110

== ENCOUNTER → 2023-06-30 | Outpatient (CLI) | payer OTHER ==
--- NOTE | 2023-06-30 09:20 | CTL ---
EXAMINATION TYPE: CT Low Dose Lung DATE OF EXAM ORDERED: 06/30/2023 HISTORY: 58-year-old female Z12.2 screening, Z87.891 personal hx of tobacco use. Current smoker with 40 pack-year history. Lung cancer screening CT DLP: 81.0 mGycm Automated exposure control for dose reduction was used. SCREENING VISIT: Baseline COMPARISON: None TECHNIQUE: Low dose computed tomography scan was performed through the chest with coronal and sagitta l reconstructions. CT DIAGNOSTIC QUALITY: Satisfactory FINDINGS: Heart normal size without pericardial effusion. LAD coronary calcifications. Aorta normal caliber with conventional arch vessel branching anatomy. Scattered calcified mediastinal and left hilar lymph nodes compatible with prior granulomatous disease. No thoracic lymphadenopathy by CT size criteria. Some strandy atelectasis or scarring at the inferior lingula. A few scattered calcified granulomas on the left. Moderate upper lung predominant centrilobular emphysema. Minimal biapical pleural parenchy mal scarring. A few tiny calcified granulomas are also present at the right base. No suspicious greater than 4 mm pulmonary nodule is identified. There is a 2.5 cm cyst posterior right liver lobe. Multiple calcified granulomas within the spleen. S ome possible gastric fold thickening versus nondistention. Bones: Mild degenerative disc disease mid to lower thoracic spine. There is a fat density lesion with in the T12 vertebral body measuring 1.5 cm likely fatty matrix hemangioma. IMPRESSION: 1. Left breast 2, benign. Evidence of prior granulomatous disease. 2. COPD with moderate emphysema in the upper lungs. Recommend smoking cessation. 3. LAD coronary artery calcifications. CT LUNG RAD AND CT CHEST RECOMMENDATION: Lung-Rad 2 Benign Appearance or Behavior: Continue annual sc reening with LDCT in 12 months. S Modifier (other clinically significant findings): None
== END | disposition home or self-care (01) ==
LOC: RADCTMAIN 08:00
PROVIDERS: ATTEND Internal Medicine Critical Care Medicine
DX: Z12.2 Encounter for screening for malignant neoplasm of respiratory organs (principal); F17.210 Nicotine dependence, cigarettes, uncomplicated; I25.10 Atherosclerotic heart disease of native coronary artery without angina pectoris; J43.2 Centrilobular emphysema
CPT/HCPCS: 71271

== ENCOUNTER 2024-03-20 10:06 | Day surgery (SDC) | payer OTHER ==
[~2024-03-20 10:06] MED LIST changes: +ALPRAZolam 0.5 MG TAB PO PRN; -ASPIRIN 325 MG TAB PO STA; -HEPARIN SODIUM,PORCINE 10,000 UNIT in SODIUM CHLORIDE 0.9% 1,000 ML IRRIGATION PRN; -HEPARIN SODIUM,PORCINE 2,500 UNIT in SODIUM CHLORIDE 0.9% 250 ML IRRIGATION PRN; -SODIUM CHLORIDE 0.9% 1,000 ML in EMPTY BAG 1 BAG IV ONE
[2024-03-20] MEDS: SODIUM CHLORIDE 0.9% 1,000 ML in EMPTY BAG 1 BAG IV SCH (10:35)
[2024-03-20] MEDS: SODIUM CHLORIDE 0.9% 1,000 ML IV ONE (10:55)
[2024-03-20 10:58] VITALS: RESP 16; TEMP 98.3
[2024-03-20 11:05] LABS: African American GFR (CKD) >90 (>60 ml/min/1.73 sqM); Anion Gap 7 mmol/L; Blood Urea Nitrogen 11 mg/dL (7-17); Calcium 9.1 mg/dL (8.4-10.2); Carbon Dioxide 26 mmol/L (22-30); Chloride 107 mmol/L (98-107); Glucose 86 mg/dL (74-99); Non-African American GFR(CKD) 79 (>60 ml/min/1.73 sqM); Potassium 4.4 mmol/L (3.5-5.1); Sodium 140 mmol/L (137-145)
[2024-03-20 11:16] LABS: Basophils # (A) 0.1 k/uL (0-0.2); Basophils % (A) 1 %; Eosinophils # (A) 0.2 k/uL (0-0.7); Eosinophils % (A) 4 %; HCT 46.8 % (34.0-46.0); HGB 14.7 gm/dL (11.4-16.0); Lymphocytes # (A) 2.1 k/uL (1.0-4.8); Lymphocytes % (A) 36 %; MCH 29.2 pg (25.0-35.0); MCHC 31.5 g/dL (31.0-37.0); MCV 92.6 fL (80.0-100.0); Mean Platelet Volume 9.8; Monocytes # (A) 0.4 k/uL (0-1.0); Monocytes % (A) 7 %; Neutrophils # (A) 2.9 k/uL (1.3-7.7); Neutrophils % (A) 50 %; Platelet Count 162 k/uL (150-450); RBC 5.05 m/uL (3.80-5.40); RDW 13.7 % (11.5-15.5); WBC 5.8 k/uL (3.8-10.6)
[2024-03-20] MEDS ORDERED: fentaNYL (PF) 50 MCG/ML 2 ML AMP ONE (11:54)
[2024-03-20] MEDS ORDERED: VERAPAMIL 2.5 MG/ML 2 ML AMP ONE (11:54)
[2024-03-20] MEDS ORDERED: HEPARIN SODIUM 1,000 UN/ML (10ML VL) ONE (11:54)
[2024-03-20] MEDS ORDERED: LIDOCAINE 1% INJ 10MG/ML (20 ML MDV) ONE (11:54)
[2024-03-20] MEDS ORDERED: HEPARIN SODIUM,PORCINE 30 ML 30 ML ONE (11:55)
[2024-03-20] MEDS: fentaNYL (PF) 50 MCG/1 ML VIAL IVP ONE ×2 (12:50→13:02)
[2024-03-20] MEDS: MIDAZOLAM 2 MG/2 ML VIAL IVP ONE ×3 (12:50→13:01)
[2024-03-20] MEDS: HEPARIN SODIUM,PORCINE 10,000 UNIT in SODIUM CHLORIDE 0.9% 1,000 ML IRRIGATION ONE (12:51)
[2024-03-20] MEDS: HEPARIN SODIUM,PORCINE (1 ML) 2,500 UNIT in SODIUM CHLORIDE 0.9% 250 ML IRRIGATION ONE (12:51)
[2024-03-20] MEDS: LIDOCAINE 1% INJ 10MG/ML (20 ML MDV) SQ ONE (12:56)
[2024-03-20] MEDS: VERAPAMIL 2.5 MG/ML 4 ML VIAL INTRAARTER ONE (12:58)
[2024-03-20] MEDS: HEPARIN SODIUM 1,000 UN/ML (10ML VL) IVP ONE (12:59)
[2024-03-20] MEDS ORDERED: RX INFO: IV CONTRAST WAS GIVEN 1 EACH MISC MISCELLANE PRN (13:07)
--- NOTE | 2024-03-20 13:10 | P.PCN ---
Date of Procedure: 03/20/24 Operative Findings: CARDIAC CATHETERIZATION PERFORMING PHYSICIAN: Cristopher Feng MD, RPVI PROCEDURE PERFORMED: 1. Selective right and left coronary angiogram 2. Left heart catheterization 3. Ultrasound-guided access of the right radial artery INDICATION: Chest discomfort concerning for unstable angina COMPLICATION: None APPROACH: Right radial artery LEVEL OF SEDATION: Moderate with a sedation length of 15 minutes PROCEDURE DESCRIPTION: After obtaining an informed consent, the patient was brought to cardiac powerhouse laborer. Local anesthesia was performed using lidocaine subcutaneously. The right radial artery was cannulated using Seldinger technique, the guidewire passed easily, following that we advanced a 5-Vincentian sheath dilator assembly, the wire and dilator were removed and sheath was flushed. Following that, 2 mg of verapamil along with 5000 unit heparin were given. Selective right and left coronary angiogram using a 6-Vincentian JR4 and JL 3.5 catheters. Following that we did left heart catheterization using 6-Vincentian pigtail catheter. The procedure was completed there was no complication. SELECTIVE CORONARY ANGIOGRAM: The right coronary artery: Large-caliber vessel and a dominant vessel and appears to be angiographically normal Left main: Is angiographically normal The left circumflex: Large-caliber vessel nondominant vessel appears to be angiographically normal and gives rise into a large OM branch The left anterior descending artery: Large caliber vessel with patent stent in the proximal to mid LAD and normal diagonal branch HEMODYNAMICS: The LVEDP was 3 mmHg with no significant gradient across aortic valve CONCLUSION: 1. Patent stent in the LAD 2. Low normal left-sided filling pressure POSTPROCEDURE MANAGEMENT: Medical treatment
[2024-03-20] MEDS: SODIUM CHLORIDE 0.9% 1,000 ML IV SCH (13:19)
[2024-03-20] MEDS: HYDROcodone/APAP 7.5-325MG 1 EACH TAB PO PRN (15:01)
[2024-03-20] MEDS: ASPIRIN 325 MG TAB PO STA (15:01)
[2024-03-20 18:04] VITALS: BP 136/66; PULSE 80
== END 2024-03-20 17:01 | disposition home or self-care (01) ==
LOC: CATHCVL 10:06
PROVIDERS: ATTEND Internal Medicine Interventional Cardiology
DX: I25.10 Atherosclerotic heart disease of native coronary artery without angina pectoris (principal); Z95.5 Presence of coronary angioplasty implant and graft
CPT/HCPCS: 93458; 80048; 85025; C1769; C1894; J2250; J1644 ×3; J2001; J3010

== ENCOUNTER → 2024-06-15 | Outpatient (CLI) | payer OTHER ==
--- NOTE | 2024-06-15 11:05 | FL ---
EXAMINATION TYPE: FL barium swallow DATE OF EXAM: 06/15/2024 CLINICAL HISTORY: Dysphagia TECHNIQUE: A double contrast esophagram is performed utilizing air and barium. A total of 60 second s of fluoroscopic time was utilized during procedure and 18 images obtained. Total dose area product (DAP) in uGy*m?, mGy*cm? (or similar) Not provided. COMPARISON: None FINDINGS: Calcified lymph nodes are seen in the hilum and mediastinum compatible with chronic granulomatous dis ease. The esophagus shows normal motility and emptying into the stomach. Any hiatal hernia but no str icture noted. Mild gastroesophageal reflux was seen during real time performance of this study. IMPRESSION: 1. Tiny hiatal hernia with mild gastroesophageal reflux. [facility], , 06/15/2024 11:03 AM
== END | disposition home or self-care (01) ==
LOC: RADFLMAIN 10:17
PROVIDERS: ATTEND Family Medicine
DX: R13.10 Dysphagia, unspecified
CPT/HCPCS: 74220

== ENCOUNTER → 2024-07-03 | Outpatient (CLI) | payer OTHER ==
--- NOTE | 2024-07-03 11:16 | CTL ---
EXAMINATION TYPE: CT Low Dose Lung DATE OF EXAM ORDERED: 07/03/2024 HISTORY: . Lung cancer screening CT DLP: [address] CTDI: 2.14 mGy Automated exposure control for dose reduction was used. SCREENING VISIT: COMPARISON: 06/30/2023 TECHNIQUE: Low dose computed tomography scan was performed through the chest at 1 mm thick sections a nd reconstructed images in multiple planes at 1 mm and [address] DIAGNOSTIC QUALITY: Satisfactory FINDINGS: Heart normal size without pericardial effusion. LAD coronary calcifications. Aorta normal caliber wit h conventional arch vessel branching anatomy. Trace of pericardial fluid. Scattered calcified mediastinal and left hilar lymph nodes compatible with prior granulomatous diseas e. No thoracic lymphadenopathy by CT size criteria. Some strandy atelectasis or scarring at the infer ior lingula. Pleural thickening or scarring. No pulmonary edema. No consolidative pneumonia. Stable bilateral calcified granuloma. Moderate emphysematous changes. Airways patent. Subsegmental li near scarring or atelectasis at the lung bases. No suspicious greater than 4 mm pulmonary nodule is identified. There is a 2.5 cm cyst posterior right liver lobe. Multiple calcified granulomas within the spleen. Bones: Mild degenerative disc disease mid to lower thoracic spine. There is a fat density lesion with in the T12 vertebral body measuring 1.5 cm likely fatty matrix hemangioma. IMPRESSION: 1. No acute process. There is evidence of prior granulomatous disease. 2. COPD with moderate emphysema in the upper lungs. Recommend smoking cessation. 3. Coronary calcifications. CT LUNG RAD AND CT CHEST RECOMMENDATION: Lung-Rad 2 Benign Appearance or Behavior: Continue annual sc reening with LDCT in 12 months. [facility], , 07/03/2024 11:14 AM
== END ==
LOC: RADCTMAIN 08:16
PROVIDERS: ATTEND Internal Medicine Critical Care Medicine
DX: Z12.2 Encounter for screening for malignant neoplasm of respiratory organs
CPT/HCPCS: 71271

== ENCOUNTER 2025-01-16 18:01 | Emergency (ER) | payer MEDICARE, OTHER ==
[2025-01-16 18:11] VITALS: RESP 18; TEMP 97.6
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
[2025-01-16] MEDS: methylPREDNISolone SOD SUCCI 125 MG/2 ML VIAL IV STA (19:50)
[2025-01-16] MEDS: SODIUM CHLORIDE 0.9% 1,000 ML IV SCH (19:56)
[2025-01-16 19:59] LABS: Basophils # (A) 0.13 10*3/uL (0.00-0.10); Basophils % (A) 1.7 %; Eosinophils # (A) 0.56 10*3/uL (0.04-0.35); Eosinophils % (A) 7.4 %; Lymphocytes # (A) 3.14 10*3/uL (0.90-5.00); Lymphocytes % (A) 41.6 %; MCH 30.1 pg (27.0-32.0); MCHC 34.8 g/dL (32.0-37.0); MCV 86.5 fL (80.0-97.0); Mean Platelet Volume 11.2 fL (9.5-12.2); Monocytes # (A) 0.57 10*3/uL (0.20-1.00); Monocytes % (A) 7.5 %; Neutrophils # (A) 3.14 10*3/uL (1.80-7.70); Neutrophils % (A) 41.7 %; Platelet Count 198 10*3/uL (140-440); RBC 5.32 10*6/uL (4.10-5.20); RDW 13.3 % (11.5-14.5); WBC 7.55 10*3/uL (4.50-10.00)
[2025-01-16 20:11] LABS: INR 0.9 (<1.2); Partial Thromboplastin Time 23.1 sec (22.0-30.0); Prothrombin Time 10.1 sec (10.0-12.5)
[2025-01-16 20:17] LABS: ALT 13 U/L (4-34); AST 22 U/L (14-36); African American GFR (CKD) >90 (>60 ml/min/1.73 sqM); Albumin 4.4 g/dL (3.5-5.0); Alkaline Phosphatase 58 U/L (38-126); Anion Gap 8 mmol/L; Blood Urea Nitrogen 7 mg/dL (7-17); Calcium 9.6 mg/dL (8.4-10.2); Carbon Dioxide 25 mmol/L (22-30); Chloride 106 mmol/L (98-107); Glucose 94 mg/dL (74-99); Magnesium 2.1 mg/dL (1.6-2.3); Non-African American GFR(CKD) 87 (>60 ml/min/1.73 sqM); Potassium 3.9 mmol/L (3.5-5.1); Sodium 139 mmol/L (137-145); Total Bilirubin 0.5 mg/dL (0.2-1.3)
[2025-01-16 20:25] LABS: NT-Pro-B-Type Natriuretic Pept <20 pg/mL
[2025-01-16] MEDS: IPRATROPIUM-ALBUTEROL 3 ML NEB INHALATION STA ×2 (20:30→20:58)
[2025-01-16] MEDS: KETOROLAC 15 MG/ML 1 ML VIAL IVP STA (20:41)
[2025-01-16 20:43] VITALS: BP 129/82; PULSE 79
[2025-01-16] MEDS: DEXAMETHASONE SOD PHOSPHATE 10 MG/ML 1 ML VIAL IVP STA (20:43)
== END 2025-01-16 21:08 | disposition home or self-care (01) ==
LOC: EC 18:01
DX: J44.1 Chronic obstructive pulmonary disease with (acute) exacerbation (principal); F17.200 Nicotine dependence, unspecified, uncomplicated; Z88.1 Allergy status to other antibiotic agents; Z88.2 Allergy status to sulfonamides; Z88.0 Allergy status to penicillin; Z88.8 Allergy status to other drugs, medicaments and biological substances; Z91.041 Radiographic dye allergy status
CPT/HCPCS: 36415; 94640; 93005; 83880; 80053; 83605; 83735; 84484; 85025; 85610; 85730; 71045; 99285; 96374; 96375 ×2; 96361; J1100; J1885; J2919